=== PATIENT | female | born 1985 | race Caucasian/White ===

== ENCOUNTER → 2019-11-25 17:39 | Outpatient (BNVA) | payer OTHER, SELFPAY | PROVIDERS: Family Provider Nurse Practitioner Family; PCP Nurse Practitioner Family; Visit Provider Nurse Practitioner | DX: J02.9 Acute pharyngitis, unspecified (principal); R05 Cough | CPT/HCPCS: 87804 ==

== ENCOUNTER → 2022-01-08 13:48 | Outpatient (BNVA) | payer OTHER, SELFPAY | PROVIDERS: PCP Nurse Practitioner Family; Visit Provider Nurse Practitioner Family | DX: R53.83 Other fatigue (principal) | CPT/HCPCS: 80053; 82306; 82607; 84439; 84443; 84481; 85025; 86376 ==

== ENCOUNTER → 2022-04-10 08:47 | Outpatient (BNVA) | payer OTHER, SELFPAY | PROVIDERS: PCP Nurse Practitioner Family; Visit Provider Nurse Practitioner Family | DX: E03.9 Hypothyroidism, unspecified (principal); E55.9 Vitamin D deficiency, unspecified; R79.89 Other specified abnormal findings of blood chemistry; G47.9 Sleep disorder, unspecified; R06.02 Shortness of breath; R53.83 Other fatigue | CPT/HCPCS: 80053; 82306; 84443 ==

== ENCOUNTER 2022-06-24 09:00 | Outpatient (CLI) | payer OTHER, SELFPAY ==
--- NOTE | 2022-06-24 09:15 | US_ITS ---
WS: [id number] THYROID ULTRASOUND HISTORY: Thyroid nodule COMPARISON: None available. Right lobe: 1.1 cm x 1.7 cm x 3.4 cm (w x ap x l). Volume: 3.4 cm3. Normal size thyroid gland. Coarse echotexture diffusely throughout the gland with no discrete nodule or significant increased vascularity. Small cervical chain lymph nodes. Left lobe: 1.3 cm x 1.5 cm x 3.4 cm (w x ap x l). Volume: 3.3 cm3. Low normal size gland with increased coarse echotexture. No discrete nodule. No increased vascularity . Small cervical chain lymph nodes. Isthmus: 0.2 cm. US/US thyroid [id number] IMPRESSION: 1. Mild coarsened echotexture diffusely throughout the gland. No increased vas cularity or nodules. 2. No lymphadenopathy.
== END 2022-06-24 09:01 | disposition home or self-care (01) ==
LOC: RAD 09:00
PROVIDERS: PCP Nurse Practitioner Family; Visit Provider Internal Medicine
DX: E04.1 Nontoxic single thyroid nodule (principal)
CPT/HCPCS: 76536

== ENCOUNTER → 2022-07-14 09:06 | Outpatient (BNVA) | payer OTHER, SELFPAY | PROVIDERS: PCP Nurse Practitioner Family; Visit Provider Internal Medicine | DX: E03.9 Hypothyroidism, unspecified (principal); E03.8 Other specified hypothyroidism; E06.3 Autoimmune thyroiditis | CPT/HCPCS: 84439; 84443; 84480 ==

== ENCOUNTER → 2023-01-20 08:32 | Outpatient (BNVA) | payer OTHER, SELFPAY | PROVIDERS: PCP Nurse Practitioner Family; Visit Provider Internal Medicine | DX: E03.9 Hypothyroidism, unspecified (principal) | CPT/HCPCS: 84439; 84443; 84480 ==

== ENCOUNTER 2023-01-24 12:43 | Emergency (ER) | payer OTHER, SELFPAY ==
[2023-01-24 12:53] VITALS: BP 113/78; PULSE 80; TEMP 36.7; O2SAT 98; BMI 26.3
[2023-01-24 13:45] VITALS: BP 105/81; PULSE 81; RESP 14; O2SAT 99
--- NOTE | 2023-01-24 13:54 | CTR_ITS ---
PROCEDURE INFORMATION: Exam: CT Head Without Contrast Exam date and time: 01/24/2023 2:20 PM Age: 37 years old Clinical indication: Other: Vertigo; Additional info: Dizziness, lmp 2 weeks ago TECHNIQUE: Imaging protocol: Computed tomography of the head without contrast. Axial, coronal and sagittal reformatted images were created and reviewed. Radiation optimization: All CT scans at this facility use at least one of these dose optimization techniques: automated exposure control; mA and/or kV adjustment per patient size (includes targeted exams where dose is matched to clinical indication); or iterative reconstruction. REPORTING DATA: Count of CT and Cardiac NM exams in prior 12 months: This patient has received 0 known CTs and 0 known cardiac nuclear medicine studies in the 12 months prior to the current study. COMPARISON: [place] thyroid [id number] 06/24/2022 9:27 AM RADIATION DOSE METRICS: Total DLP (mGy-cm): 1040.79 FINDINGS: Brain: No CT evidence of acute intracranial hemorrhage or acute territorial infarction. No significant mass effect or midline shift. Basal cisterns patent. Cerebral ventricles: Normal in size and configuration. Paranasal sinuses: Polypoid left sphenoid sinus mucosal thickening. No air-fluid levels. Mastoid air cells: Grossly unremarkable. Bones/joints: No acute osseous abnormality. Soft tissues: Grossly unremarkable. CT/CT head wo con* [id number]PRESSION: 1. No CT evidence of acute intracranial pathology. 2. Additional findings, as above.
--- NOTE | 2023-01-24 13:55 | W.ED.DIZZY ---
HPI - Dizziness General: Chief Complaint: Dizziness Stated Complaint: dizzy/nauseas Time Seen by Provider: 01/24/23 13:00 History of Present Illness: HPI Narrative: Patient comes in with dizziness that started this morning. States she woke up this morning with the room spinning experiencing severe nausea. States this is never happened before. Denies any other symptoms including no fever, cough, congestion, vomiting, diarrhea, chest pain, abdominal pain. Denies any sore throat, or ear pain. States that the episodes have been coming and going during the day but getting less frequent and less severe as the day goes on. Associated symptoms: Denies chest pain, headache(s), nausea, palpitations or vomiting Associated neuro symptoms: Deny numbness in extremities Review of Systems Const: Denies: fever(s) or body aches Eyes: Denies: change in vision or blurry vision ENMT: Denies: throat pain or odynophagia Card: Denies: chest pain or palpitations Resp: Denies: dyspnea or productive cough GI: Denies: abdominal pain, nausea or vomiting : Denies: flank pain or dysuria Musc: Denies: neck pain or back pain Skin/Breast: Denies: rash or pruritus Neuro: Reports: dizziness; Denies: headache(s) or numbness in extremities Psych: Denies: anxiety or change in appetite Endo: Denies: polyuria or excessive sweating PFSH ED PFSH: Medical History (Updated 01/24/23 @ 14:50 by Carlton Schmidt MD) History of hypothyroidism Hypothyroidism 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 Vitamin D deficiency Surgical History (Updated 12/05/22 @ 17:29 by PATRIC Herrera) H/O LEEP Hx of section Family History Father Hypertension Mother Fibromyalgia Cancer History of partial hysterectomy Social History Smoking and tobacco status: never smoked Second hand smoke exposure: No Smoking risk assessment/counseling performed?: No Alcohol intake: never Desire information about alcohol rehabilitation?: No Counseling given: No Desire information about substance/drug rehabilitation?: No Counseling given: No Adopted: No Caregiver/support person: No Lives independently: Yes Household members: spouse Housing: House Marital status: Number of children: 1 Highest education level completed: High School Graduate service: No Current occupational status: employed Physical Exam Const: COMMON NORMALS: no acute distress, patient oriented x3, healthy appearing and alert HENMT: COMMON NORMALS: normocephalic and atraumatic HEAD & SCALP: normocephalic and atraumatic Eye: COMMON NORMALS: Equal, round and reactive pupils present and EOMs intact bilaterally PUPIL: Yes Equal, round and reactive pupils present Neck/C-Spine: COMMON NORMALS: full ROM and supple Resp: COMMON NORMALS: normal respiratory effort, No retractions and No use of accessory muscles Cardio: COMMON NORMALS: regular rate and regular rhythm RATE: regular rate RHYTHM: regular rhythm GI: COMMON NORMALS: Normal to inspection, nondistended, normoactive bowel sounds present, Soft to palpation and non-tender PALPATION: Yes Soft to palpation Back/Pelvis: COMMON NORMALS: thoracic and lumbar spine normal to inspection and no thoracic nor lumbar tenderness Extremity: COMMON NORMALS: normal to inspection and full ROM Neuro: COMMON NORMALS: patient oriented x3 SENSORIUM/ORIENTATION: Yes alert OTHER: Grossly normal neuro exam with negative Catlin-Hallpike maneuver Psych: COMMON NORMALS: mental status grossly normal and cooperative Skin: COMMON NORMALS: no rashes or lesions noted and no wounds GENERAL SKIN EXAM: no rashes or lesions noted Course Vital Signs: Vital signs: Vital Signs Temperature 98.1 F 01/24/23 12:53 Pulse Rate 81 01/24/23 13:45 Respiratory Rate 14 01/24/23 13:45 Blood Pressure 105/81 01/24/23 13:45 Pulse Oximetry 99 01/24/23 13:45 Oxygen Delivery Me thod Room Air 01/24/23 13:45 MDM - Dizziness Medical Decision Making Patient comes in with dizziness that started this morning. States she woke up this morning with the room spinning experiencing severe nausea. States this is never happened before. Denies any other symptoms including no fever, cough, congestion, vomiting, diarrhea, chest pain, abdominal pain. Denies any sore throat, or ear pain. States that the episodes have been coming and going during the day but getting less frequent and less severe as the day goes on. Physical exam is unremarkable at this time with a grossly normal neuro exam. Catlin-Hallpike maneuver was negative. Patient is asymptomatic at this time. I talked with her at length about vertigo. Will check CT, and reassess. On reassessment I talked to the patient about the test results. Her CT head is negative for acute intracranial process. Will write for meclizine to use as needed if the dizziness returns, and discharged with precautions to return for worsening or changing symptoms. Lab Data Radiology Impressions Head CT 01/24/23 13:[address]: 1[address] evidence of acute intracranial pathology. 2. Additional findings, as above. 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
[2023-01-24] MEDS: meclizine 25 mg tablet PO (15:14)
== END 2023-01-24 15:19 | disposition home or self-care (01) ==
PROVIDERS: Emergency Provider Emergency Medicine; PCP Nurse Practitioner Family
DX: R42 Dizziness and giddiness (principal)
CPT/HCPCS: 70450; 99284; J8597

== ENCOUNTER → 2023-04-03 08:21 | Outpatient (BNVA) | payer OTHER, SELFPAY | PROVIDERS: PCP Nurse Practitioner Family; Visit Provider Internal Medicine | DX: E03.9 Hypothyroidism, unspecified (principal); E55.9 Vitamin D deficiency, unspecified | CPT/HCPCS: 84439; 84443; 84480 ==

== ENCOUNTER → 2023-05-15 08:23 | Outpatient (BNVA) | payer OTHER, SELFPAY | PROVIDERS: PCP Nurse Practitioner Family; Visit Provider Internal Medicine | DX: E03.9 Hypothyroidism, unspecified (principal) | CPT/HCPCS: 84439; 84443 ==

== ENCOUNTER → 2024-02-17 08:39 | Outpatient (BNVA) | payer OTHER, SELFPAY | PROVIDERS: PCP Nurse Practitioner Family; Visit Provider Internal Medicine | DX: E03.8 Other specified hypothyroidism (principal); E06.3 Autoimmune thyroiditis; R53.83 Other fatigue | CPT/HCPCS: 82533; 84439; 84443 ==

== ENCOUNTER → 2024-05-02 08:16 | Outpatient (BNVA) | payer OTHER, SELFPAY | PROVIDERS: PCP Nurse Practitioner Family; Visit Provider Internal Medicine | DX: E03.8 Other specified hypothyroidism (principal); E06.3 Autoimmune thyroiditis | CPT/HCPCS: 82533; 84439; 84443; 84480 ==

== ENCOUNTER → 2024-09-29 08:16 | Outpatient (BNVA) | payer OTHER, SELFPAY | PROVIDERS: PCP Nurse Practitioner Family; Visit Provider Internal Medicine | DX: E03.9 Hypothyroidism, unspecified (principal) | CPT/HCPCS: 84439; 84443; 84480 ==

== ENCOUNTER → 2025-01-11 08:11 | Outpatient (BNVA) | payer OTHER, SELFPAY | PROVIDERS: PCP Nurse Practitioner Family; Visit Provider Internal Medicine | DX: E03.9 Hypothyroidism, unspecified (principal) | CPT/HCPCS: 84439; 84443 ==

== ENCOUNTER → 2025-03-16 09:38 | Outpatient (BNVA) | payer OTHER, SELFPAY | PROVIDERS: PCP Nurse Practitioner Family; Visit Provider Internal Medicine | DX: E03.9 Hypothyroidism, unspecified (principal); F32.A Depression, unspecified; R63.5 Abnormal weight gain; R53.83 Other fatigue | CPT/HCPCS: 82306; 82607; 82728; 82746; 83550; 84439; 84443; 85025 ==

== ENCOUNTER → 2025-05-19 08:01 | Outpatient (BNVA) | payer OTHER, SELFPAY | PROVIDERS: PCP Nurse Practitioner Family; Visit Provider Internal Medicine | DX: F32.A Depression, unspecified (principal); R63.5 Abnormal weight gain; R53.83 Other fatigue; E03.9 Hypothyroidism, unspecified | CPT/HCPCS: 84439; 84443; 84480 ==